=== PATIENT | male | born 1995 | race Caucasian/White ===

== ENCOUNTER 2018-07-02 20:21 | Emergency (ER) | payer OTHER, SELFPAY ==
[2018-07-02 20:22] VITALS: BP 144/85; PULSE 77; RESP 15; TEMP 37; O2SAT 99; BMI 39.2
--- NOTE | 2018-07-02 20:55 | RAD_ITS ---
STUDY: X-RAY - RIGHT ANKLE REASON FOR EXAM: Male, 23 years old. Pain. TECHNIQUE: 4 view(s) of the ankle. COMPARISON: None. FINDINGS: Normal visualized distal tibia and fibula. Normal medial and lateral malleoli. Normal tibiotalar articulation and ankle mortise. Normal visualized talus and calcaneus. The visualized subtalar, talonavicular, calcaneocuboid and tarsal articulations are normal. There is no demonstrated fracture. The soft tissue structures are unremarkable. RAD/Ankle min 3 Views IMPRESSION: Normal x-ray examination of the ankle. Electronically Signed: aSmir Rosario MD at 21:33 EST , Service support ,
--- NOTE | 2018-07-02 22:16 | ED.VISSUMM ---
- ER Visit Summary Date of Service: 07/02/18 Chief Complaint: Right ankle pain History of Present Illness: The patient is a 23 M presents to the emergency department with right ankle pain. Patient states his been going on for almost a month. He states he feels like his ankles clicking or popping. 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 He states sometimes it hurts and feels like he needs to crack at the get back in place. He did not fall. He has been trying Biofreeze with little improvement. Physical Examination: Exam is relatively unremarkable. The patient does have some mild pain and swelling along the medial malleolus. His pulses are normal. Huddleston testing is negative. He does have pain with inversion of the ankle along the medial malleolus. There is no pain at the proximal fibula. There is no pain in the head of the fifth metatarsal. Test Results: [] Emergency Department Course and Treatment: Plain films were obtained of the ankle. There is no evidence of fracture or dislocation. My suspicion is that this is likely a tendinitis or ankle sprain that he cannot recall the injury. The patient was placed in an Aircast. He will be given anti-inflammatories. He will be given outpatient orthopedic follow-up. He is comfortable with this plan of care. Patient will be discharged home. Treatment Plan: [] Disposition: Discharge Impression: Right ankle tendinitis This note was generated with [employer] dictation software. It may contain incorrect words, spelling, and punctuation that were not noted in review of the chart prior to signing ED Disposition - Plan for ED Patient: Chief Complaint: Lower Extremity Injury Instructions: ED Sprain Ankle W X Ray Prescriptions: Naproxen [Naprosyn] 500 mg PO BID PRN #20 tab Referrals: Eren Burdick DO [STAFF PHYSICIAN] -
--- NOTE | 2018-07-02 22:29 | ED.DCSUM_ITS ---
- ER Visit Summary Date of Service: 07/02/18 Chief Complaint: Right ankle pain History of Present Illness: The patient is a 23 M presents to the emergency department with right ankle pain. Patient states his been going on for almost a month. He states he feels like his ankles clicking or popping. 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 He states sometimes it hurts and feels like he needs to crack at the get back in place. He did not fall. He has been trying Biofreeze with little improvement. Physical Examination: Exam is relatively unremarkable. The patient does have some mild pain and swelling along the medial malleolus. His pulses are normal. Huddleston testing is negative. He does have pain with inversion of the ankle along the medial malleolus. There is no pain at the proximal fibula. There is no pain in the head of the fifth metatarsal. Test Results: [] Emergency Department Course and Treatment: Plain films were obtained of the ankle. There is no evidence of fracture or dislocation. My suspicion is that this is likely a tendinitis or ankle sprain that he cannot recall the injury. The patient was placed in an Aircast. He will be given anti-inflammatories. He will be given outpatient orthopedic follow-up. He is comfortable with this plan of care. Patient will be discharged home. Treatment Plan: [] Disposition: Discharge Impression: Right ankle tendinitis This note was generated with [employer] dictation software. It may contain incorrect words, spelling, and punctuation that were not noted in review of the chart prior to signing ED Disposition - Plan for ED Patient: Chief Complaint: Lower Extremity Injury Instructions: ED Sprain Ankle W X Ray Prescriptions: Naproxen [Naprosyn] 500 mg PO BID PRN #20 tab Referrals: Eren Burdikc DO [STAFF PHYSICIAN] -
[2018-07-02] MEDS: Naproxen 500 MG Tablet PO (22:36)
[2018-07-02 22:37] VITALS: BP 140/75; PULSE 75; RESP 17; O2SAT 99
--- OUTSIDE RECORDS SUMMARY | 2018-10-04 06:30 | XMS RPT_ITS ---
:1995 Author Organization [facility] Care Team Providers Name Role Phone Eren Chance Attending Unavailable PROBLEMS PROBLEMS No Problem Records FoundPROCEDURES PROCEDURES No Procedure Records FoundRESULTS RESULTS EMERGENCY DEPARTMENT Observed: 07/02/2018 Status: F Source: [facility] SUMMARY 10:39 PM [facility] REPOSITORY [facility] Medical Records Department [address] [place] [address] Emergency Department Summary 07/02/18 2216 MR#: [id number] Acct: [id number] Name: VIKTOR GARZA Rep #: [id number] : 1995 23 From: Eren Chance MD PCP: OUT OF TOWN DOCTOR Status: REG ER - ER Visit Summary Date of Service: 07/02/18 Chief Complaint: Right ankle pain History of Present Illness: The patient is a 23 M presents to the emergency department with right ankle pain. Patient states his been going on for almost a month. He states he feels like his ankles clicking or popping. 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 He states sometimes it hurts and feels like he needs to crack at the get back in place. He did not fall. He has been trying Biofreeze with little improvement. Physical Examination: Exam is relatively unremarkable. The patient does have some mild pain and swelling along the medial malleolus. His pulses are normal. Huddleston testing is negative. He does have pain with inversion of the ankle along the medial malleolus. There is no pain at the proximal fibula. There is no pain in the head of the fifth metatarsal. Test Results: [] Emergency Department Course and Treatment: Plain films were obtained of the ankle. There is no evidence of fracture or dislocation. My suspicion is that this is likely a tendinitis or ankle sprain that he cannot recall the injury. The patient was placed in an Aircast. He will be given anti-inflammatories. He will be given outpatient orthopedic follow-up. He is comfortable with this plan of care. Patient will be discharged home. Treatment Plan: [] Disposition: Discharge Impression: Right ankle tendinitis This note was generated with [employer] dictation software. It may contain incorrect words, spelling, and punctuation that were not noted in review of the chart prior to signing ED Disposition - Plan for ED Patient: Chief Complaint: Lower Extremity Injury Instructions: ED Sprain Ankle W X Ray Prescriptions: Naproxen [Naprosyn] 500 mg PO BID PRN #20 tab Referrals: Eren Burdick DO [STAFF PHYSICIAN] - What to do if you have Problems For any increased pain, shortness of breath, bleeding, nausea or vomiting, chest pain, or any unexpected problems, contact your Primary Care Provider. Call [facility] ([phone]) or report to the closest Emergency Room. Call 911 if necessary. 07/02/182238 <Electronically signed by Eren Chance MD> Date Eren Chance MD Cosigner Signature (If Indicated): Date CC: OUT OF TOWN DOCTOR ANKLE MIN 3 VIEWS Observed: 07/02/2018 Status: F Source: [facility] 8:52 PM [facility] REPOS[facility] Imaging Services [facility] [place] [address] Ankle min 3 Views MR#: [id number] Acct: [id number] Name: VIKTOR GARZA Rep #: [id number] : 1995 M 23 From: Samir Rosario MD PCP: NOT, DEFINED Status: PRE ER Study: Ankle min 3 Views Date of Exam: 07/02/18 Exam# [id number] Ordering Dr: Provider,Ed Zack STUDY: X-RAY - RIGHT ANKLE REASON FOR EXAM: Male, 23 years old. Pain. TECHNIQUE: 4 view(s) of the ankle. COMPARISON: None. FINDINGS: Normal visualized distal tibia and fibula. Normal medial and lateral malleoli. Normal tibiotalar articulation and ankle mortise. Normal visualized talus and calcaneus. The visualized subtalar, talonavicular, calcaneocuboid and tarsal articulations are normal. There is no demonstrated fracture. The soft tissue structures are unremarkable. RAD/Ankle min 3 Views IMPRESSION: Normal x-ray examination of the ankle. Electronically Signed: Samir Rosario MD at 21:33 EST , Service support , CC: DEFINED NOT; ED PHYSICIAN PROVIDER Setter Machine: Signed ALLERGIES ALLERGIES DATE TYPE / CODE NAME / CODE REACTION SEVERITY SOURCE 07/02/2018 Drug No Known Unknown [facility] Allergy/4160 Allergies/F00 Hospital 13405(SNOMED 7023161(RXNOR Repository CT) M) ENCOUNTERS ENCOUNTERS ADMIT/DISCHARGE ACCOUNT ADMITTING ENCOUNTER LOCATION SOURCE NUMBER CLASS 07/02/2018/ [id number] Emergency [facility] [place] [facility] ing:ED Repository PAYERS PAYERS ENCOUNTER GUARANTOR PAYER SUBSCRIBER SOURCE 07/02/2018 VIKTOR Link [address] Insurance:MEDICAL PACHISDOB: [facility] [id number] [address]Wli: (415) Number: Repository [phone] HP) [id number] Date:[id number] [address] [place] [id number]: 07/02/2018 Secondary NOT GIVENUNK [facility] Insurance:SELF PAY [facility]: Effective Repository Date:2018-07-02
== END 2018-07-02 22:43 | disposition home or self-care (01) ==
LOC: ED 22:26
PROVIDERS: Emergency Provider Emergency Medicine
DX: S93.401A Sprain of unspecified ligament of right ankle, initial encounter (principal); M77.9 Enthesopathy, unspecified; X58.XXXA Exposure to other specified factors, initial encounter; Y93.9 Activity, unspecified; Y92.9 Unspecified place or not applicable; Y99.9 Unspecified external cause status
CPT/HCPCS: 73610; 99283